=== PATIENT | female | born 1965 | race Caucasian/White ===

== ENCOUNTER 2016-09-28 12:31 | Day surgery (SDC) | payer OTHER ==
[~2016-09-28] VITALS: Ht 162.6 cm; Wt 60.7 kg
[~2016-09-28 12:31] MED LIST: 0.9% Sodium Chloride 1,000 ML IV SCH; BETA300T PO; FLUC200T5 PO; MAGN300C PO; METH1TAB PO; PROG1.3G VG; Sodium Chloride LOK Flush 10 mL Syringe IV PRN; fentaNYL-PF 50 mCg/mL 2 mL Inj IVPUSH PRN
[2016-09-28 13:54] VITALS: BP 141/84; PULSE 84; RESP 14; O2SAT 100
[2016-09-28 15:29] VITALS: BP 114/76; PULSE 73; RESP 16; O2SAT 100
[2016-09-28 15:39] VITALS: BP 119/79; PULSE 68; RESP 16; O2SAT 100
[2016-09-28 15:49] VITALS: BP 119/84; PULSE 73; RESP 16; O2SAT 100
--- NOTE | 2016-10-09 15:04 | PATH ---
SURGICAL PATHOLOGY Attending Physician:Marc Barnes CASE STATUS: Signed Out * Amended * PATIENT NAME: ZACH WOLFE PID: [id number] : 1965 DATE COLLECTED:09/28/2016 00:00 SPECIMEN: 1: Duodenum, Biopsy 2: Gastric, Biopsy 3: Stomach, Polyp, Biopsy 4: Ileum, Biopsy 5: Colon, Biopsy 6: Colon, Biopsy 7: Colon, Biopsy CLINICAL HISTORY: 1). DUODENUM BIOPSY 2). GASTRIC BIOPSY 3). GASTRIC BODY POLYPS 4). TERMINAL ILEUM BIOPSY 5). RANDOM COLON BIOPSY 6). ASCENDING COLON POLYP 7). DESCENDING COLON POLYP FINAL DIAGNOSIS: 1. Duodenum, Biopsy: Superficial portions of duodenal mucosa with a well-preserved villous architecture and no significant histomorphologic abnormality. No pathogenic organisms identified. Negative for dysplasia and neoplasia. 2. Gastric Biopsy: Superficial portions of gastric fundic and gastric antral mucosa with no significant histomorphologic abnormality. Negative for H. pylori organisms identified by immunohistochemistry studies. 3. Gastric Body Polyps, Biopsies: Fundic gland polyp. Negative for dysplasia and neoplasia. 4. Terminal Ileum, Biopsy: Superficial portions of small bowel mucosa, consistent with terminal ileum, with no significant histomorphologic abnormality. 5. Colon, Random Biopsies: Superficial portions of colorectal mucosa with occasional prominent lymphoid aggregates and no significant histomorphologic abnormality. Negative for microscopic colitis, granulomas, active inflammation, dysplasia, and neoplasia. No pathogenic organisms identified. 6. Ascending Colon, Polyp, Biopsy: No tissue identified for evaluation. The specimen consists of minute fragments of vegetable matter and bacteria. 7. Descending Colon, Polyp, Biopsy: Sessile serrated adenoma. ICD10 K63.5 This case was reviewed and interpreted by Dr. Ariadne Bhat. The final diagnosis is unchanged. This amendment is issued in order for the report to cross the interface and be available in the hospital electronic medical record. GROSS DESCRIPTION: The specimen is received in seven formalin filled containers labeled with the patient's name. 1). The specimen is sublabeled "duodenum" and consists of and consists of 5 portions of tissue which aggregate to 0.4 x 0.4 x 0.2 CM. The specimen is entirely submitted in cassette 1A. 2). The specimen is sublabeled "gastric" and consists of 2 portions of tissue which aggregate to 0.3 x 0.3 x 0.2 CM. The specimen is entirely submitted in cassette 2A. 3). The specimen is sublabeled "gastric body polyps" and consists of a 0.3 x 0.3 x 0.3 CM portion of tissue which is entirely submitted in cassettes 3A. 4). The specimen is sublabeled "terminal ileum" and consists of 2 portions of tissue which aggregate to 0.3 x 0.3 x 0.2 CM. The specimen is entirely submitted in cassette 4A. 5). The specimen is sublabeled "random colon" and consists of multiple portions of tissue which aggregate to 0.4 x 0.4 x 0.2 CM. The specimen is entirely submitted in cassette 5A. 6). The specimen is sublabeled "ascending colon polyp" and consists of an extremely tiny less than 0.1 CM portion of tissue. The specimen is entirely submitted in cassette 6A. 7). The specimen is sublabeled "descending colon polyp" and consists of a 0.3 x 0.2 x 0.2 CM portion of tissue which is entirely submitted in cassette 7A. 09/29/2016 DAC MICRO DESCRIPTION: IMMUNOHISTOCHEMISTRY: Block 2A: H. pylori:Negative. * This test was developed and its performance characteristics determined by [facility]. It has not been cleared or approved by the U.S. Food and Drug Administration. The FDA has determined that such clearance or approval is not necessary. This test is used for clinical purposes. It should not be regarded as investigational or for research. ICD-9 CODES: CPT CODES: 1: 87209 2: 26073, 63171 3: 38041 4: 86266 5: 27165 6: 01477 7: 45121 AMENDMENT(S): Amended: 10/09/2016 by Amy Phan Reason:Miscellaneous The final diagnosis is unchanged. This amendment is issued in order for the report to cross the interface and be available in the hospital electronic medical record. Previous Signout Date: 10/03/2016 Electronically Signed Out Noelle Grant MD [facility] [address], [place] [address] Technical component performed at [facility], [address] [place] [address] Ave[address], [place], [address]
--- NOTE | 2016-10-25 23:47 | ENDO ---
[address] [address] ENDOSCOPY PROCEDURE PATIENT: ZACH WOLFE : 1965 MR#: [id number] ADMIT: 09/28/2016 JOB ID: [id number] DATE OF PROCEDURE: PROCEDURE: Esophagogastroduodenoscopy. INDICATION: Abdominal bloating. SEDATION: Patient's ASA classification is I. Mallampati score is 2. MEDICATIONS: 1. Versed 7 mg. 2. Fentanyl 125 mcg. INSTRUMENT USED: [id number]. PROCEDURE DETAILS: After informed consent was obtained, the patient was brought to the GI suite, where she was placed on oxygen via nasal cannula and monitored with continuous pulse oximeter, telemetry and blood pressure monitoring. A time-out was performed. Then, she was placed in the left lateral decubitus position and a bite block was placed. Medications were then administered for sedation. The standard EGD scope was then inserted through the bite block and advanced under direct visualization to second portion of duodenum without difficulty. FINDINGS: 1. Normal appearing duodenal bulb, first and second portion. Multiple random biopsies were obtained. 2. Normal appearing pylorus, antrum and gastric body. 3. Retroflexed views in the gastric body revealed normal appearing cardia and fundus. 4. Multiple random biopsies were obtained throughout the antrum and body of stomach. 5. Normal appearing GE junction with a regular Z-line at 40 cm. 6. Normal appearing esophagus. IMPRESSION: Normal esophagogastroduodenoscopy exam to second portion of duodenum. RECOMMENDATIONS: 1. Await biopsy results. 2. Proceed to colonoscopy. PROCEDURE PERFORMED: Colonoscopy. INDICATION: Blood in stool and abdominal bloating. Please see above for ASA classification, Mallampati score, and medications. INSTRUMENT USED: [id number]. PREPARATION QUALITY: Good. PROCEDURE DETAILS: After completion of the EGD exam, the patient was turned and then a digital rectal exam was performed which was unremarkable. The colonoscope was then inserted into the rectum and advanced under direct visualization to the terminal ileum, which was identified by the presence of the ileocecal valve and villous appearing mucosa and terminal ileum. Once the terminal ileum was reached, the colonoscope was withdrawn back into the rectum. Mucosa and lumen were examined. In the rectum, retroflexion was performed. Following retroflexion, remaining air in the rectum was suctioned, and procedure was completed. FINDINGS: 1. Normal appearing terminal ileum. Multiple random biopsies were obtained. 2. There was an approximately 5 mm sessile polyp in the ascending colon that was removed with cold biopsy forceps. 3. In the descending colon there was an approximately 4 mm polyp that was removed with cold snare. 4. The remainder of the colon mucosa appeared normal from rectum to cecum. Multiple random biopsies were obtained throughout the entire colon. IMPRESSION: 1. Ascending colon polyp. 2. Descending colon polyp. 3. Otherwise normal exam from rectum to terminal ileum. RECOMMENDATIONS: 1. Await biopsy results. 2. Follow up in GI clinic. COMPLICATIONS: None. ESTIMATED BLOOD LOSS: Less than 5 mL.
== END 2016-09-28 23:59 | disposition home or self-care (01) ==
LOC: END 12:31
PROVIDERS: ATTEND Internal Medicine Gastroenterology
DX: K92.1 Melena (principal); R14.0 Abdominal distension (gaseous); D12.4 Benign neoplasm of descending colon; D37.4 Neoplasm of uncertain behavior of colon; K31.7 Polyp of stomach and duodenum
CPT/HCPCS: 43239; 45380; 45385; 99153; G0500; J7030